=== PATIENT | female | born 1960 | race Two or more races ===

== ENCOUNTER 2023-02-12 20:47 | Emergency (ER) | payer OTHER ==
[~2023-02-12] VITALS: Ht 162.6 cm; Wt 63.5 kg
[2023-02-12 22:31] LABS: HEMATOCRIT 38.6 % (36.0-45.00); HEMOGLOBIN 12.5 g/dL (12.0-15.00); MEAN CORPUSCULAR HEMOGLOBIN 20.3 pg (27.00-32.0); MEAN CORPUSCULAR HGB CONC 32.4 g/dl (32.0-36.0); PLATELET COUNT 255 K/uL (150-450); RED BLOOD COUNT 6.17 M/uL (4.00-6.00); RED CELL DISTRIBUTION WIDTH 15.9 % (11.5-14.5)
[2023-02-12 22:32] LABS: MEAN CELL VOLUME 62.7 fL (80.00-100.00)
[2023-02-12 22:37] LABS: ALBUMIN 3.9 gm/dL (3.4-5.0); BILIRUBIN TOTAL 0.58 mg/dL (0.3-1.2); CALCIUM 9.3 mg/dL (8.5-10.1); CREATININE SERUM 0.78 mg/dL (0.55-1.02); GFR 74.35; GLOBULINA 3.8 G/DL (2.4-3.5); TOTAL PROTEIN 7.7 gm/dL (6.4-8.2)
[2023-02-12 22:55] LABS: POTASSIUM 5.17 mEq/L (3.5-5.1)
[2023-02-13] MEDS ORDERED: ZOFRAN8 MG PO (04:29)
[2023-02-13] MEDS ORDERED: PEPCID AC20 MG PO (04:29)
== END 2023-02-13 04:59 | disposition home or self-care (01) ==
LOC: ER 20:47
PROVIDERS: Emergency Medicine
DX: K29.70 Gastritis, unspecified, without bleeding (principal)